=== PATIENT | female | born 2000 | race Caucasian/White ===

== ENCOUNTER 2020-04-29 11:22 | Emergency (ER) | payer BC, OTHER ==
[2020-04-29 11:41] VITALS: BP 119/64; PULSE 56; BMI 22.3
--- NOTE | 2020-04-29 11:41 | PDOC ---
Rapid Medical Evaluation Time Seen by Provider: 04/29/20 11:37 Medical Evaluation: Allergies Allergy/AdvReac Type Severity Reaction Status Date / Time No Known Allergies Allergy Verified 04/29/20 11:37 04/29/20 11:39 I have performed a brief in-person evaluation of this patient. The patient presents with a chief complaint of: dog bite to face from pt's own dog, thinks tetanus UTD Pertinent physical exam findings:stable I have ordered the following:nothing The patient will proceed to the ED for further evaluation. Discharge Disposition - Diagnosis Dog bite Qualifiers: Encounter type: initial encounter Qualified Code(s): W54.0XXA - Bitten by dog, initial encounter - Referrals - Patient Instructions - Post Discharge Activity
--- NOTE | 2020-04-29 12:28 | PDOC ---
History of Present Illness - General History Source: Patient Exam Limitations: Clinical Condition - History of Present Illness Initial Comments: 04/29/20 13:01 Patient with no significant past medical history present with mother with laceration to left side of lower lip status post being bit by her own dog while playing with a dog an hour prior to arrival. Patient reported dog is a hybrid medium-sized dog. Patient reported dog was not aggressive. Patient reported up-to-date on tetanus vaccine. Denies any other symptoms. Denies difficulty swallowing. Timing/Duration: reports: just prior to arrival <Antonio Bernard - Last Filed: 04/29/20 13:01> <Lesly Galeano - Last Filed: 04/29/20 13:14> - General Chief Complaint: Bite Stated Complaint: LIP INJURY/ DOG BITE Time Seen by Provider: 04/29/20 11:37 Past History - Medical History COPD: No - Reproductive History Is Patient Now?: No - Psycho-Social/Smoking History Smoking History: Never smoked - Substance Abuse Hx (Audit-C & DAST Scrn) How often the patient has a drink containing alcohol: Monthly or less Score: In Men: 4 or > Positive; In Women: 3 or > Positive: 1 Screen Result (Pos requires Nsg. Audit-10AR): Negative In the last yr the pt used illegal drug/Rx for NonMed reason: No Score: Yes response is considered Positive: 0 Screen Result (Positive result requires Nsg. DAST-10): Negative <Antonio Bernard - Last Filed: 04/29/20 13:01> <Lesly Galeano - Last Filed: 04/29/20 13:14> - Medical History Allergies/Adverse Reactions: Allergies Allergy/AdvReac Type Severity Reaction Status Date / Time No Known Allergies Allergy Verified 04/29/20 11:37 Home Medications: Ambulatory Orders Escitalopram Oxalate [Lexapro -] 20 mg PO DAILY 04/29/20 Lamotrigine [Lamictal] mg PO ASDIR 04/29/20 Review of Systems - Review of Systems Able to Perform ROS?: Yes Is the patient limited Russian proficient: No Constitutional: No: Symptoms Reported, See HPI, Chills, Diaphoresis, Fever, Loss of Appetite, Malaise, Night Sweats, Weakness, Weight Stable, Unintentional Wgt. Loss, Unexplained wgt Loss, Other HEENTM: Yes: Symptoms Reported, See HPI, Mouth Swelling, Other (lower lip lac eration). No: Eye Pain, Blurred Vision, Tearing, Recent change in vision, Double Vision, Cataracts, Ear Pain, Ocular Prothesis, Ear Discharge, Nose Pain, Nose Congestion, Tinnitus, Nose Bleeding, Hearing Loss, Throat Pain, Throat Swelling, Mouth Pain, Dental Problems, Difficulty Swallowing Respiratory: No: Symptoms reported, See HPI, Cough, Orthopnea, Shortness of Breath, SOB with Exertion, SOB at Rest, Stridor, Wheezing, Productive cough, Hemoptysis, Other Cardiac (ROS): No: Symptoms Reported ABD/GI: No: Symptoms Reported, Nausea, Vomiting Integumentary: Yes: Symptoms Reported, See HPI, Other (laceration to lower lip ) All Other Systems: Reviewed and Negative <Antonio Bernard - Last Filed: 04/29/20 13:01> *Physical Exam - Vital Signs Last Vital Signs Temp Pulse Resp BP Pulse Ox 56 L 18 119/64 99 04/29/20 11:39 04/29/20 11:39 04/29/20 11:39 04/29/20 11:39 - Physical Exam 04/29/20 13:05 GENERAL: Well developed, well nourished. Awake and alert. No acute distress. HEENT: 2 cm deep laceration to left corner of lower lip through vermilion border. Another 1 mm deep laceration to medial aspect of lower lip. Normo cephalic, atraumatic. PERRLA, EOMI. No conjunctival pallor. Sclera are non- icteric. Moist mucous membranes. Oropharynx is clear. NECK: Supple. Full ROM. PULMONARY: No evidence of respiratory distress. MUSCULOSKELETAL Normal range of motion at all joints. SKIN: Warm and dry. Normal capillary refill. Laceration to lower lip NEUROLOGICAL: Alert, awake, appropriate. Gait is normal without ataxia. PSYCHIATRIC: Cooperative. Good eye contact. Appropriate mood General Appearance: Yes: Nourished, Appropriately Dressed. No: Apparent Distress <Antonio Bernard - Last Filed: 04/29/20 13:01> - Vital Signs Last Vital Signs Temp Pulse Resp BP Pulse Ox 56 L 18 119/64 99 04/29/20 11:39 04/29/20 11:39 04/29/20 11:39 04/29/20 11:39 <Lesly Galeano - Last Filed: 04/29/20 13:14> Medical Decision Making - Medical Decision Making 04/29/20 13:03 Patient with no significant past medical history present with mother with laceration to left side of lower lip status post being bit by her own dog while playing with a dog an hour prior to arrival. Patient reported dog is a hybrid medium-sized dog. Patient reported dog was not aggressive. Patient reported up-to-date on tetanus vaccine. Denies any other symptoms. Denies difficulty swallowing. Exam significant for 2 cm deep laceration to left corner aspect of lower lip to the vermilion border. Another 1 cm deep laceration to lower lip on the mid aspect with minimal bleeding. Oropharynx normal. Rest of face with no bruising no injury. Given extent of injury, patient will need plastic surgeon for repair for cosmetic reasons. 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 We will transfer patient to [facility] for la repair by plastic surgeon. Transfer initiated to [facility] <Antonio Bernard - Last Filed: 04/29/20 13:01> - Medical Decision Making The patient was seen and evaluated in conjunction with midlevel provider under my direct supervision, ancillary studies were reviewed. I agree with the plan as outlined withEMMA Bernard. HPI, workup/dispo as outlined. in summary 19 y/o female s/p dog bite by pet dog hound-pit breed, with lip lacerations. VS reviewed, wnl. Vital Signs Temp Pulse Resp BP Pulse Ox 56 L 18 119/64 99 04/29/20 11:39 04/29/20 11:39 04/29/20 11:39 04/29/20 11:39 exam notable for intact airway, well appearing, left lateral lip laceration through christianne border and into mucosa. inner lip small laceration. no plastics available, tdap is up to date transfer to [facility] for plastics repair Augmentin here given dog bite laceration 04/29/20 13:11 04/29/20 13:14 <Lesly Galeano - Last Filed: 04/29/20 13:14> Discharge - Discharge Information Problems reviewed: Yes - Admission No - Transfer to Acute Care Facility Receiving Facility Name: [facility] Accepting Physician:: Dr. Orly Newell Transfer Comment: 04/29/20 13:09 Patient accepted by [facility] to be seen by Dr. Orly Newell, ENT surgeon for lack repair <JoanaAntonio Young - Last Filed: 04/29/20 13:01> <Lesly Galeano - Last Filed: 04/29/20 13:14> - Discharge Information Clinical Impression/Diagnosis: Dog bite Qualifiers: Encounter type: initial encounter Qualified Code(s): W54.0XXA - Bitten by dog, initial encounter Complicated laceration of lip Qualifiers: Encounter type: initial encounter Qualified Code(s): S01.511A - Laceration without foreign body of lip, initial encounter Condition: Stable Disposition: TRANSFER ACUTE CARE/OTHER HOSP - Patient Discharge Instructions Patient Printed Discharge Instructions: How to Care for a Domestic Animal Bite, DI for Animal Bites
[2020-04-29] MEDS ORDERED: AMOX TR/POT CLAV 875MG/125MG TABLETS (FP) PO ONE (13:11)
[2020-04-29] MEDS ORDERED: AMOX TR/POT CLAV 875MG/125MG TABLETS (FP) ONE (13:17)
== END 2020-04-29 13:32 | disposition short-term general hospital (02) ==
LOC: JERFT 11:22
DX: S01.511A Laceration without foreign body of lip, initial encounter (principal); W54.0XXA Bitten by dog, initial encounter
CPT/HCPCS: 99285-25